=== PATIENT | male | born 1935 | race Caucasian/White ===

== ENCOUNTER 2018-02-10 05:46 | Day surgery (SDC) | payer OTHER ==
[~2018-02-10 05:46] MED LIST: COREG CR10 MG; HYZAAR 100-12.1 EACH; PROSCAR5 MG; PROTONIX40 M1; ZALTRAP; ZOCOR20 MG
== END 2018-02-10 13:35 | disposition home or self-care (01) ==
LOC: CIR.AMB 05:46
DX: K40.31 Unilateral inguinal hernia, with obstruction, without gangrene, recurrent (principal)

== ENCOUNTER 2024-11-22 07:22 | Outpatient (CLI) | payer OTHER | END 2024-11-22 07:23 | disposition home or self-care (01) | LOC: NUCLEAR 07:22 | PROVIDERS: ATTEND Internal Medicine | DX: R07.9 Chest pain, unspecified (principal) | CPT/HCPCS: 78452; 93017; A9500 ==

== ENCOUNTER → 2024-11-26 09:48 | Outpatient (CLI) | payer OTHER | END | disposition home or self-care (01) | LOC: NUCLEAR 09:48 | PROVIDERS: ATTEND Internal Medicine | DX: I10 Essential (primary) hypertension (principal) ==